=== PATIENT | male | born 1970 | race Caucasian/White ===

== ENCOUNTER 2020-11-24 10:07 | Emergency (ER) | payer BC ==
[~2020-11-24] VITALS: Ht 177.8 cm; Wt 77.1 kg
[~2020-11-24 10:07] MED LIST: ATIVAN0.5 MG PO; DARVOCET-N 1001 EACH PO; DESYREL50 MG PO; LUMIGAN2.5 ML OP; PAXIL20 MG PO; PEGASYS180 MCG/1 SQ; PENICILLIN VK500 M1 PO; PROPRANOLOL 1010 M1 PO; XANAX 0.25 MG0.25 MG PO; ZANTAC150 M2 PO
[2020-11-24 11:06] LABS: ABSOLUTE NEUTROPHILS 6.4 thou/uL (1.4-8.2); BASOPHILS 0.9 % (0.0-2.0); EOSINOPHILS 1.9 % (0.0-3.0); HEMATOCRIT 45.9 % (42.0-52.0); LYMPHOCYTES 18.7 % (24.0-44.0); MCHC 34.9 g/dL (28.0-37.0); MCV 91.6 fL (80.0-100.0); MONOCYTES 9.1 % (1.0-8.0); PLATELET COUNT 327 thou/uL (150-400); POLYS 69.4 % (36.0-66.0); RBC 5.01 mil/uL (4.50-6.00); RDW 13.1 % (10.5-14.5); WBC 9.3 thou/uL (4.0-11.0)
[2020-11-24 11:11] LABS: CALCIUM 8.8 mg/dL (8.5-10.1); CREATININE 1.1 mg/dL (0.7-1.3); POTASSIUM 3.9 mmol/L (3.5-5.1)
[2020-11-24] MEDS ORDERED: CEPHALEXIN500 MG PO (12:03)
[2020-11-24] MEDS ORDERED: NORCO5 PO (12:03)
[2020-11-24 13:52] VITALS: BP 149/87
[2020-11-26] MEDS ORDERED: NORCO5 PO ×2 (10:28→11:09)
[2020-11-26] MEDS ORDERED: LISINOPRIL20 MG PO ×2 (11:01→11:06)
[2020-11-28] MEDS ORDERED: BACTRIM DS TAB1 EACH PO ×2 (16:05→16:08)
== END 2020-11-24 13:53 | disposition home or self-care (01) ==
LOC: ER 10:07
PROVIDERS: Emergency Medicine
DX: L03.011 Cellulitis of right finger (principal); M10.9 Gout, unspecified; Z79.899 Other long term (current) drug therapy

== ENCOUNTER 2020-11-26 08:21 | Emergency (ER) | payer BC ==
[~2020-11-26] VITALS: Ht 177.8 cm; Wt 74.8 kg
[~2020-11-26 08:21] MED LIST changes: +CEPHALEXIN500 MG PO; +NORCO5 PO
[2020-11-26] MEDS ORDERED: NORCO5 PO ×4 (10:28→11:09)
[2020-11-26] MEDS ORDERED: LISINOPRIL20 MG PO ×4 (11:01→11:06)
[2020-11-26 11:05] VITALS: BP 182/109
[2020-11-27] MEDS ORDERED: XANAX XR1 MG PO (13:06)
[2020-11-28] MEDS ORDERED: BACTRIM DS TAB1 EACH PO ×4 (16:05→16:08)
== END 2020-11-26 11:09 | disposition home or self-care (01) ==
LOC: ER 08:21
DX: L03.011 Cellulitis of right finger (principal); M10.9 Gout, unspecified

== ENCOUNTER 2020-11-27 12:44 | Emergency (ER) | payer BC ==
[~2020-11-27] VITALS: Ht 177.8 cm; Wt 74.8 kg
[~2020-11-27 12:44] MED LIST changes: +LISINOPRIL20 MG PO
[2020-11-27] MEDS ORDERED: XANAX XR1 MG PO (13:06)
[2020-11-27 14:47] VITALS: BP 150/92
[2020-11-28] MEDS ORDERED: BACTRIM DS TAB1 EACH PO ×4 (16:05→16:08)
== END 2020-11-27 14:50 | disposition home or self-care (01) ==
LOC: ER 12:44
DX: L03.011 Cellulitis of right finger (principal); M10.9 Gout, unspecified; Z88.5 Allergy status to narcotic agent; Z86.19 Personal history of other infectious and parasitic diseases; Z79.899 Other long term (current) drug therapy

== ENCOUNTER 2020-12-05 18:19 | Emergency (ER) | payer OTHER ==
[~2020-12-05] VITALS: Ht 177.8 cm; Wt 74.8 kg
[~2020-12-05 18:19] MED LIST changes: +BACTRIM DS TAB1 EACH PO; +XANAX XR1 MG PO
[2020-12-05] MEDS ORDERED: DOXYCYCLINE 10100 MG PO (19:09)
[2020-12-05] MEDS ORDERED: NORCO5 PO (19:09)
[2020-12-05 19:35] VITALS: BP 119/82
== END 2020-12-05 19:26 | disposition home or self-care (01) ==
LOC: ER 18:19
DX: L03.011 Cellulitis of right finger (principal); Z79.899 Other long term (current) drug therapy; Z79.2 Long term (current) use of antibiotics; Z88.5 Allergy status to narcotic agent

== ENCOUNTER 2021-08-04 09:40 | Emergency (ER) | payer OTHER ==
[~2021-08-04] VITALS: Ht 177.8 cm; Wt 74.8 kg
[~2021-08-04 09:40] MED LIST changes: +DOXYCYCLINE 10100 MG PO
[2021-08-04 09:59] VITALS: BP 161/93
[2021-08-04] MEDS ORDERED: ELIQUIS5 MG PO (10:02)
== END 2021-08-04 11:16 | disposition home or self-care (01) ==
LOC: ER 09:40
DX: J06.9 Acute upper respiratory infection, unspecified (principal); Z20.822 Contact with and (suspected) exposure to COVID-19; F12.90 Cannabis use, unspecified, uncomplicated; M10.9 Gout, unspecified; Z88.5 Allergy status to narcotic agent; Z79.899 Other long term (current) drug therapy